=== PATIENT | female | born 1955 | race Caucasian/White ===

== ENCOUNTER 2023-10-05 15:49 | Emergency (ER) | payer MEDICAID ==
[~2023-10-05] VITALS: Ht 162.6 cm; Wt 77.1 kg
[2023-10-05 15:50] VITALS: BP_SYST 198; PULSE 73; RESP 18; TEMP 98.3; O2SAT 95
[2023-10-05 16:58] LABS: BASOPHILS # (AUTO) 0.1 K/uL (0.0-0.2); BASOPHILS % (AUTO) 1.5 % (0.0-2.0); EOSINOPHILS # (AUTO) 0.2 K/uL (0.0-0.4); EOSINOPHILS % (AUTO) 2.5 % (0.0-4.0); HEMATOCRIT 32.9 % (36-48); HEMOGLOBIN 11.1 g/dL (12.0-16.0); LYMPHOCYTES # (AUTO) 1.4 K/uL (1.0-5.5); LYMPHOCYTES % (AUTO) 21.2 % (20.5-51.5); MEAN CORPUSCULAR HEMOGLOBIN 30 pg (27-31); MEAN CORPUSCULAR HGB CONC 34 % (32-36); MEAN CORPUSCULAR VOLUME 90 fL (79.0-98.0); MONOCYTES # (AUTO) 0.6 K/uL (0.0-1.0); MONOCYTES % (AUTO) 9.2 % (1.7-9.3); NEUTROPHILS # (AUTO) 4.4 K/uL (1.8-7.7); NEUTROPHILS % (AUTO) 65.6 % (40.0-70.0); PLATELET COUNT (AUTO) 173 K/uL (130-430); RED BLOOD CELL COUNT(AUTO) 3.66 MIL/uL (4.2-6.2); RED CELL DISTRIBUTION WIDTH 17.6 % (9.0-15.0); WHITE BLOOD COUNT (AUTO) 6.7 K/uL (4.8-10.8)
[2023-10-05 17:07] LABS: CALCIUM 8.5 mg/dL (8.4-11.0); CREATININE 4.87 mg/dL (0.55-1.30); POTASSIUM 3.7 mmol/L (3.5-5.1)
[2023-10-05 17:14] LABS: ERYTHROCYTE SEDIMENTATION RATE 26 MM/HR (0-20)
[2023-10-05] MEDS: LABETALOL HCL 20 MG/4 ML CARTRIDGE IVP ONE ×2 (18:41→20:27)
[2023-10-05 19:00] LABS: CLARITY/URINE TURBID (CLEAR); COLOR,URINE YELLOW (YELLOW)
[2023-10-05 19:01] LABS: BILIRUBIN,URINE NEGATIVE (NEGATIVE); BLOOD, URINE 3+ (NEGATIVE); GLUCOSE,URINE NEGATIVE (NEGATIVE); KETONES,URINE TRACE (NEGATIVE); LEUKOCYTE ESTERASE ,URINE 3+ (NEGATIVE); NITRITE, URINE NEGATIVE (NEGATIVE); PROTEIN URINE 3+ (NEGATIVE)
[2023-10-05] MEDS: KETOROLAC TROMETHAMINE 60 MG/2 ML VIAL IM ONE (19:03)
[2023-10-05 19:06] LABS: BACTERIA,URINE MANY /HPF (None Seen); MUCUS,URINE None Seen /LPF (None Seen); WBC,URINE >100 /HPF (0-3)
[2023-10-05] MEDS ORDERED: IBUP-1969 PO (19:46)
[2023-10-05] MEDS ORDERED: CIPR500T5 PO (19:46)
[2023-10-05 21:19] VITALS: BP_SYST 165; PULSE 78; RESP 19; TEMP 97.4; O2SAT 95
== END 2023-10-05 21:14 | disposition home or self-care (01) ==
LOC: SED 15:49
DX: N39.0 Urinary tract infection, site not specified (principal); R51.9 Headache, unspecified; H53.9 Unspecified visual disturbance; Z88.1 Allergy status to other antibiotic agents; Z79.899 Other long term (current) drug therapy
CPT/HCPCS: 99285; 96374; 70450; 80048; 81001; 85025; 85651; 87086; 36415; 81000; 96372; 81015; J1885; 87186